=== PATIENT | female | born 1960 | race African-American/Black ===

== ENCOUNTER 2022-08-08 18:44 | Emergency (ER) | payer BC, MEDICAID ==
[~2022-08-08] VITALS: Ht 170.2 cm; Wt 104.0 kg
[~2022-08-08 18:44] MED LIST: METF-370; NIFE10CA3
[2022-08-08] MEDS ORDERED: DOPamine 1600mCg/ml 400MG/250ml NSorD5 KIT/BAG IV ONE (18:47)
[2022-08-08] MEDS ORDERED: CALCIUM CHLOR(10%) 100MG/ML 10ML SYRINGE IV ONE (18:47)
[2022-08-08] MEDS ORDERED: ATROPINE SULF 1 MG/10ml SYR IV ONE (18:47)
[2022-08-08] MEDS ORDERED: DEXTROSE (50%) 50ML SYRG IV ONE (18:47)
[2022-08-08] MEDS ORDERED: EPINEPHrine HCL 1 MG/10 ML SYRG IV ONE (18:47)
[2022-08-08] MEDS ORDERED: ACCU-CHEK COMFORT CURVE STRIP VI ONE (19:00)
== END 2022-08-08 19:00 ==
LOC: EDBD 18:44 → ER 18:46
DX: I46.9 Cardiac arrest, cause unspecified (principal); I12.0 Hypertensive chronic kidney disease with stage 5 chronic kidney disease or end stage renal disease; E11.22 Type 2 diabetes mellitus with diabetic chronic kidney disease; N18.6 End stage renal disease; Z99.2 Dependence on renal dialysis
CPT/HCPCS: 31500; 92950; 99285; J0171; J1265; J7042